=== PATIENT | male | born 1960 | race Caucasian/White ===

== ENCOUNTER 2017-01-10 08:42 | Emergency (ER) | payer OTHER ==
[~2017-01-10] VITALS: Ht 177.8 cm; Wt 74.0 kg
[~2017-01-10 08:42] MED LIST: ALBUS PO; BUSP10 PO; DILT30 PO; FOLI1TAB PO; STOO100C PO; THIA50CA PO; XARE10TA PO; [UNRECOGNIZED DRUG - CODE] PO
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
[2017-01-10 08:57] VITALS: BP 143/73; PULSE 89; RESP 20; TEMP 97.8; O2SAT 97
[2017-01-10] MEDS ORDERED: LORazepam 2 MG/ML VIAL IM ONE (09:00)
[2017-01-10] MEDS ORDERED: SODIUM CHLORIDE 0.9% FLUSH 10 ML FLUSH IVF PRN (09:00)
[2017-01-10] MEDS ORDERED: HALOPERIDOL LACTATE 5 MG/ML AMP IM ONE (09:00)
[2017-01-10] MEDS ORDERED: FLUT1INH7 INH (09:07)
[2017-01-10 11:28] VITALS: BP 116/76; PULSE 88; RESP 18; TEMP 97.7; O2SAT 99
[2017-01-10] MEDS ORDERED: LORazepam 2 MG TAB PO ONE (11:30)
[2017-01-10 18:07] VITALS: BP 106/61; PULSE 100; RESP 18; O2SAT 94
[2017-01-11 02:36] VITALS: BP 138/88; PULSE 97; RESP 17; O2SAT 97
[2017-01-11 05:48] VITALS: BP 120/75; PULSE 97; RESP 18; O2SAT 97
[2017-01-11 10:00] VITALS: BP 144/69; PULSE 105; RESP 18; TEMP 97.7; O2SAT 94
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
--- NOTE | 2017-01-11 13:58 | PD ---
Physical Exam Date Seen by Provider: Jan 11, 2017 Time Seen by Provider: 13:57 Narrative 56-year-old male previously medically cleared after being Asencio acted , has been seen by Dr. Beaver, the psychiatrist and cleared psychiatrically for discharge. Patient continues to be medically stable for discharge. Please see psychiatric note follow-up plan. Data Data Last Documented VS Vital Signs Date Time Temp Pulse Resp B/P (MAP) Pulse Ox O2 Delivery O2 Flow Rate FiO2 01/11/17 10:00 97.7 105 18 144/69 (94) 94 01/11/17 05:48 Room Air Orders Orders Cath For Specimen (01/10/17 08:58) Psych Screen (01/10/17 08:58) Sodium Chloride 0.9% Flush (Ns Flush) (01/10/17 09:00) Haloperidol Inj (Haldol Inj) (01/10/17 09:00) Lorazepam Inj (Ativan Inj) (01/10/17 09:00) Lorazepam (Ativan) (01/10/17 11:30) Drug Screen, Random Urine (01/10/17 11:22) Diet Regular Basic (01/10/17 Dinner) Diet Regular Basic (01/10/17 Lunch) Diet Regular Basic (01/11/17 Breakfast) Diet Regular Basic (01/11/17 Lunch) Labs Laboratory Tests Test 01/10/17 12:20 Urine Opiates Screen NEG Urine Barbiturates Screen NEG Urine Amphetamines Screen NEG Urine Benzodiazepines Screen POS Urine Cocaine Screen NEG Urine Cannabinoids Screen POS MDM Medical Record Reviewed: Yes Supervised Visit with JUAN CARLOS: Yes Narrative Course 56-year-old male previously medically cleared after being Asencio acted , has been seen by Dr. Beaver, the psychiatrist and cleared psychiatrically for discharge. Patient continues to be medically stable for discharge. Please see psychiatric note follow-up plan. Diagnosis Primary Impression: Alcohol abuse Referrals: [facility] (Out patient) Patient Instructions: General Instructions Med/Other Pt SpecificInfo: No Change to Meds, No Meds Exist/No RX given Disposition: 01 DISCHARGE HOME Condition: Stable David Martino Jan 11, 2017 13:58
== END 2017-01-11 14:24 | disposition home or self-care (01) ==
LOC: NEPD 08:42 → NEPJ 01-11 14:24
DX: F10.10 Alcohol abuse, uncomplicated (principal); F19.90 Other psychoactive substance use, unspecified, uncomplicated; F12.90 Cannabis use, unspecified, uncomplicated; M19.90 Unspecified osteoarthritis, unspecified site; J45.909 Unspecified asthma, uncomplicated; F41.9 Anxiety disorder, unspecified; J44.9 Chronic obstructive pulmonary disease, unspecified; I10 Essential (primary) hypertension; Z72.0 Tobacco use
CPT/HCPCS: 80307; 99285